=== PATIENT | male | born 1990 | race American Indian/Alaskan Native ===

== ENCOUNTER 2016-10-21 06:32 | Emergency (ER) | payer SELFPAY ==
[2016-10-21] MEDS ORDERED: NORCO 5/325 PO ONE (09:39)
[2016-10-21] MEDS ORDERED: VEETIDS PO ONE (12:00)
[2016-10-21 12:30] VITALS: BP 142/104
--- NOTE | 2016-10-21 12:45 | Emergency Department Report ---
Entered by RICK BEDOYA, acting as scribe for CHARLY SHETTY PA. ED ENT HPI - General Chief complaint: Dental/Oral Stated complaint: TOOTHACHE Time Seen by Provider: 10/21/16 09:35 Source: patient, family Mode of arrival: Ambulatory Limitations: No Limitations - History of Present Illness Initial comments: 25 y/o male with no significant PMHx presents to the ED c/o right upper back dental pain that began 1 day ago. Rates pain an 8/10 in severity at onset, which he describes as aching in quality. Aggravated with chewing and movement, and alleviated with nothing. Denies drooling, fever, chills, numbness, tingling , nausea, vomiting, facial swelling, sore throat, ear pain, headache, dizziness , and chest pain. Took 2 tablets of Tylenol Extra-Strength with no relief. Patient was driven to the ED by his . Patient states he has insurance, but he denies having a dentist. NKDA. BARBER complaint: tooth pain (right upper back) Onset/Timin -: days(s) Location: tooth # (2) Severity: severe Severity scale (0 -10): 8 Quality: aching Consistency: constant Improves with: none Worsens with: eating Context- Dental: history of dental caries, poor dental care Context- Ear: other (poor dental care) Associated Symptoms: toothache. denies: fever, cough, gum swelling, pain with swallowing, sore throat, tinnitus, hearing loss, discharge from ear, rhinorrhea - Related Data Previous Rx's Medication Instructions Recorded Last Taken Type Acetaminophen/Codeine [Tylenol 1 tab PO Q6H PRN #12 tab 10/21/16 Unknown Rx /Codeine # 3 tab] Ibuprofen [Motrin] 600 mg PO Q8H PRN #15 tablet 10/21/16 Unknown Rx Penicillin Vk [Veetids TAB] 250 mg PO Q8H #60 tablet 10/21/16 Unknown Rx Allergies Allergy/AdvReac Type Severity Reaction Status Date / Time No Known Allergies Allergy Verified 10/21/16 06:45 ED Dental HPI - General Chief complaint: Dental/Oral Stated complaint: TOOTHACHE Time Seen by Provider: 10/21/16 09:35 Source: patient Mode of arrival: Ambulatory Limitations: No Limitations - History of Present Illness complaint: tooth pain (right upper back) Onset/Timin -: days(s) Severity: severe Quality: aching Consistency: constant Improves with: none Worsens with: eating, chewing Context- Dental: history of dental caries Dental Associated Symptons: No: Headache, Earache, Sore Throat, Gum Swelling, Fever - Related Data Previous Rx's Medication Instructions Recorded Last Taken Type Acetaminophen/Codeine [Tylenol 1 tab PO Q6H PRN #12 tab 10/21/16 Unknown Rx /Codeine # 3 tab] Ibuprofen [Motrin] 600 mg PO Q8H PRN #15 tablet 10/21/16 Unknown Rx Penicillin Vk [Veetids TAB] 250 mg PO Q8H #60 tablet 10/21/16 Unknown Rx Allergies Allergy/AdvReac Type Severity Reaction Status Date / Time No Known Allergies Allergy Verified 10/21/16 06:45 ED Review of Systems Comment: All other systems reviewed and negative Constitutional: denies: chills, diaphoresis, fever, weakness Eyes: denies: eye pain, eye discharge, vision change ENT: dental pain (right upper back). denies: ear pain, throat pain, congestion Respiratory: denies: cough, orthopnea, shortness of breath, SOB with exertion, SOB at rest, stridor, wheezing Cardiovascular: denies: chest pain, palpitations, dyspnea on exertion, orthopnea , edema, syncope, paroxysmal nocturnal dyspnea Endocrine: no symptoms reported Gastrointestinal: denies: abdominal pain, nausea, vomiting, diarrhea Musculoskeletal: denies: back pain, joint swelling, arthralgia Skin: denies: rash, lesions Neurological: denies: headache, weakness, numbness, paresthesias Hematological/Lymphatic: denies: easy bleeding, easy bruising ED Past Medical Hx - Past Medical History Previous Medical History?: No - Surgical History Past Surgical History?: No - Family History Family history: hypertension - Social History Smoking Status: Light Tobacco Smoker Substance Use Type: None Other Social History: maried and lives with - Medications Home Medications: Home Medications Medication Instructions Recorded Confirmed Last Taken Type Acetaminophen/Codeine [Tylenol 1 tab PO Q6H PRN #12 tab 10/21/16 Unknown Rx /Codeine # 3 tab] Ibuprofen [Motrin] 600 mg PO Q8H PRN #15 tablet 10/21/16 Unknown Rx Penicillin Vk [Veetids TAB] 250 mg PO Q8H #60 tablet 10/21/16 Unknown Rx ED Physical Exam - General Limitations: No Limitations General appearance: alert, in no apparent distress - Head Head exam: Present: atraumatic, normocephalic, normal inspection - Eye Eye exam: Present: normal appearance, PERRL, EOMI. Absent: periorbital swelling , periorbital tenderness Pupils: Present: normal accommodation - ENT ENT exam: Present: normal orophraynx, mucous membranes moist, TM's normal bilaterally, normal external ear exam. Absent: normal exam - Expanded ENT Exam Expanded Ear exam: Present: normal external inspection Mouth exam: Present: normal external inspection (uvula is midline), tongue normal, other (multiple caries). Absent: drooling, trismus, muffled voice, tongue elevation, laceration Teeth exam: Present: dental caries (diffused), fractured tooth # (#2. # 13 and 14 are fractured to the gum line with no pulp exposure. ). Absent: gingival enlargement Throat exam: Positive: normal inspection. Negative: tonsillar erythema, tonsillomegaly, tonsillar exudate, R peritonsillar mass, L peritonsillar mass - Neck Neck exam: Present: normal inspection, full ROM. Absent: tenderness, meningismus, lymphadenopathy, thyromegaly - Respiratory Respiratory exam: Present: normal lung sounds bilaterally. Absent: respiratory distress, wheezes, rales, rhonchi, stridor, chest wall tenderness, accessory muscle use, decreased breath sounds - Cardiovascular Cardiovascular Exam: Present: regular rate, normal rhythm, normal heart sounds. Absent: systolic murmur, diastolic murmur - GI/Abdominal GI/Abdominal exam: Present: soft, normal bowel sounds. Absent: distended, tenderness, guarding, rebound, rigid - Extremities Exam Extremities exam: Present: normal inspection, full ROM, normal capillary refill. Absent: tenderness, pedal edema, joint swelling, calf tenderness - Back Exam Back exam: Present: normal inspection, full ROM. Absent: tenderness, CVA tenderness (R), CVA tenderness (L), muscle spasm, paraspinal tenderness, vertebral tenderness, rash noted - Neurological Exam Neurological exam: Present: alert, oriented X3, normal gait, reflexes normal. Absent: motor sensory deficit - Psychiatric Psychiatric exam: Present: normal affect, normal mood - Skin Skin exam: Present: warm, dry, intact, normal color. Absent: rash ED Course Vital Signs 10/21/16 06:45 Temperature 98.5 F Pulse Rate 62 Respiratory 18 Rate Blood Pressure 149/102 [Right] O2 Sat by Pulse 100 Oximetry Vital Signs 10/21/16 10/21/16 06:45 12:29 Temperature 98.5 F Pulse Rate 62 60 Respiratory 18 18 Rate Blood Pressure 149/102 142/104 [Right] O2 Sat by Pulse 100 99 Oximetry - Reevaluation(s) Reevaluation #1: 10/21/16 12:05 Patient given no cough 5/325 2 tablets emergency room along with penicillin VK. Pain is better with Wayne 10/21/16 12:05 ED Medical Decision Making - Medical Decision Making MDM ED course: Patient here reports that he has left lower toothache that started this morning. Denies any facial swelling. Physical findings shows patient with multiple bilateral dental caries with multiple tooth fracture. He does not have any facial swelling and mild tenderness around tooth #2. No induration noted. She was given Wayne 5/325 mg 2 tablets by mouth in emergency room which relieved his pain and started on penicillin VK 500 mg by mouth. Patient with diagnosis of toothache, dental caries, tooth fracture and elevated blood pressure without history of hypertension. I discussed with him that he will need to follow-up at [facility] for blood pressure management and he should keep a log of his blood pressure and take to visit with him. Patient does not have a dentist at present but he said he has access to get one. I discussed the patient that he will need to call [facility] dental clinic and schedule an appointment for evaluation and treatment. Patient voiced understanding of discharge diagnosis and treatment plan and discharged home with his family member. ED Disposition Clinical Impression: Dental caries, Tooth ache, Blood pressure elevated without history of HTN Fracture of tooth Qualifiers: Encounter type: initial encounter Fracture type: closed Qualified Code(s): S02.5XXA - Fracture of tooth (traumatic), initial encounter for closed fracture Disposition: DC- TO HOME OR SELFCARE Is pt being admited?: No Does the pt Need Aspirin: No Condition: Stable Instructions: Dental Caries (ED), Toothache (ED), Heart Healthy Diet (ED), Low Sodium Diet (ED), Hypertension (ED) Additional Instructions: Follow-up at [facility] dental clinic call today to schedule an appointment Take antibiotic as prescribed Tylenol 3 can cause drowsiness so please do not drive or operate heavy machinery while taking this medication Floss twice daily and gargle with Listerine twice daily Please keep a log of your blood pressure and schedule appointment with your primary care doctor for follow-up visit and take blood pressure log along with you to your visit. Prescriptions: Acetaminophen/Codeine [Tylenol /Codeine # 3 tab] 1 tab PO Q6H PRN #12 tab PRN Reason: Pain Ibuprofen [Motrin] 600 mg PO Q8H PRN #15 tablet PRN Reason: Pain Penicillin Vk [Veetids TAB] 250 mg PO Q8H #60 tablet Referrals: [facility] [Outside] - 3-5 Days [facility] [Outside] - 3-5 Days Forms: Accompanied Note, Work/School Release Form(ED) This documentation as recorded by the ELKE swain JASMINE,accurately reflects the service I personally performed and the decisions made by me,CHARLY SHETTY PA.
== END 2016-10-21 12:30 | disposition home or self-care (01) ==
LOC: ED 06:32
DX: K02.9 Dental caries, unspecified (principal); R03.0 Elevated blood-pressure reading, without diagnosis of hypertension; F17.200 Nicotine dependence, unspecified, uncomplicated
CPT/HCPCS: 99282

== ENCOUNTER 2018-11-05 12:47 | Emergency (ER) | payer SELFPAY ==
[2018-11-05 13:50] VITALS: BP 118/78
--- NOTE | 2018-11-05 13:50 | Event Note ---
ED Screening Note Date of service: 11/05/18 Time: 13:49 ED Screening Note: 28 y/o male comes in for right ankle pain s/p fall at work 2 days ago. This initial assessment/diagnostic orders/clinical plan/treatment(s) is/are subject to change based on patients health status, clinical progression and re- assessment by fellow clinical providers in the ED. Further treatment and workup at subsequent clinical providers discretion. Patient/guardian urged not to elope from the ED as their condition may be serious if not clinically assessed and managed. Initial orders include:
--- NOTE | 2018-11-05 15:13 | XRay Report ---
Right ankle-2 views INDICATION: ankle pain s/p fall.. COMPARISON: None. IMPRESSION: Obliquely oriented fracture of the lateral malleolus at the level of the tibiotalar join t space without significant displacement. Mild soft tissue swelling along the lateral aspect of the ankle. Signer Name: Neeraj Roth MD Signed: 11/05/2018 3:09 PM Workstation Name: [id number]
[2018-11-05] MEDS ORDERED: PERCOCET 5/325 PO ONE (15:25)
--- NOTE | 2018-11-05 15:31 | Emergency Department Report ---
ED Lower Extremity HPI - General Chief Complaint: Extremity Injury, Lower Stated Complaint: RT ANKLE INJURY Time Seen by Provider: 11/05/18 13:48 Source: patient Mode of arrival: Ambulatory Limitations: No Limitations - History of Present Illness Initial Comments: Mr. Anderson is a 28-year-old male who injured his right ankle 2 days ago. He fell while carrying a heavy load. Ground-level fall. His ankle struck the pavement directly. Swelling has markedly worsened over the last 2 days. He is limping. 10/10 severe intensity of pain without radiation. No other injuries. Pain is located right lateral ankle MD Complaint: ankle injury -: Sudden, days(s) (2) Injury: Ankle: Right Type of Injury: blunt Place: work Severity: severe Severity scale (0 -10): 10 Worsens With: weight bearing Context: fall, direct blow Associated Symptoms: swelling, able to partially bear weight - Related Data Previous Rx's Medication Instructions Recorded Last Taken Type Acetaminophen/Codeine [Tylenol 1 tab PO Q6H PRN #12 tab 10/21/16 Unknown Rx /Codeine # 3 tab] Ibuprofen [Motrin] 600 mg PO Q8H PRN #15 tablet 10/21/16 Unknown Rx Penicillin Vk [Veetids TAB] 250 mg PO Q8H #60 tablet 10/21/16 Unknown Rx oxyCODONE /ACETAMINOPHEN [Percocet 1 tab PO Q6HR PRN #15 tablet 11/05/18 Unknown Rx 5/325] Allergies Allergy/AdvReac Type Severity Reaction Status Date / Time No Known Allergies Allergy Verified 10/21/16 06:45 ED Review of Systems ROS: Stated complaint: RT ANKLE INJURY Other details as noted in HPI Constitutional: denies: fever, malaise Respiratory: denies: shortness of breath Musculoskeletal: joint swelling, arthralgia Skin: change in color. denies: rash, lesions Neurological: denies: numbness, paresthesias ED Past Medical Hx - Past Medical History Previous Medical History?: No - Surgical History Past Surgical History?: No - Social History Smoking Status: Never Smoker Substance Use Type: None - Medications Home Medications: Home Medications Medication Instructions Recorded Confirmed Last Taken Type Acetaminophen/Codeine [Tylenol 1 tab PO Q6H PRN #12 tab 10/21/16 Unknown Rx /Codeine # 3 tab] Ibuprofen [Motrin] 600 mg PO Q8H PRN #15 tablet 10/21/16 Unknown Rx Penicillin Vk [Veetids TAB] 250 mg PO Q8H #60 tablet 10/21/16 Unknown Rx oxyCODONE /ACETAMINOPHEN [Percocet 1 tab PO Q6HR PRN #15 tablet 11/05/18 Unknown Rx 5/325] ED Physical Exam - General Limitations: No Limitations General appearance: alert, in no apparent distress - Head Head exam: Present: atraumatic, normocephalic - Eye Eye exam: Absent: scleral icterus, conjunctival injection - ENT ENT exam: Absent: mucous membranes moist - Neck Neck exam: Present: normal inspection, full ROM - Respiratory Respiratory exam: Absent: respiratory distress - Expanded Lower Extremity Exam Right Knee exam: Present: normal inspection, full ROM Lower Leg exam: Present: normal inspection, full ROM Ankle exam: Present: tenderness, swelling Foot/Toe exam: Present: normal inspection, full ROM Neuro vascular tendon exam: Present: no vascular compromise 1 - Redness edema exquisite tenderness no deformity - Neurological Exam Neurological exam: Present: alert, oriented X3, normal gait (hobbling with limp guarding right lower extremity) - Skin Skin exam: Present: dry, intact, other (erythema lateral foot distal lateral ankle) ED Course Vital Signs 11/05/18 13:48 Temperature 98.4 F Pulse Rate 84 Respiratory 18 Rate Blood Pressure 118/78 O2 Sat by Pulse 100 Oximetry ED Lower Extremity MDM - Radiology Data Radiology results: report reviewed Nondisplaced lateral malleolus distal fibula fracture according to radiology interpretation - Medical Decision Making Mr. Anderson has nondisplaced closed right distal fibular fracture, Right posterior splint was applied to the affected extremity under my supervision. After application the extremity was neurovascularly intact with acceptable alignment. Prescribed Percocet. Referred to orthopedic surgeon. Full fracture care provi ded. Advised to see orthopedic surgeon in one week's time. Critical care attestation.: If time is entered above; I have spent that time in minutes in the direct care of this critically ill patient, excluding procedure time. ED Disposition Clinical Impression: Closed fracture of right distal fibula Disposition: DC- TO HOME OR SELFCARE Is pt being admited?: No Does the pt Need Aspirin: No Condition: Stable Instructions: Ankle Fracture (ED), Splint Care (ED) Prescriptions: oxyCODONE /ACETAMINOPHEN [Percocet 5/325] 1 tab PO Q6HR PRN #15 tablet PRN Reason: Pain Referrals: CARMELA CABA MD [Staff Physician] - 3-5 Days Forms: Work/School Release Form(ED)
== END 2018-11-05 15:55 | disposition home or self-care (01) ==
LOC: ED 12:47
DX: S99.911A Unspecified injury of right ankle, initial encounter (principal); S82.831A Other fracture of upper and lower end of right fibula, initial encounter for closed fracture; Z79.899 Other long term (current) drug therapy; W18.39XA Other fall on same level, initial encounter; Y93.89 Activity, other specified; Y92.89 Other specified places as the place of occurrence of the external cause; Y99.8 Other external cause status